=== PATIENT | male | born 1980 | race Native Hawaiian/Other Pacific Islander ===

== ENCOUNTER 2019-03-05 22:01 | Emergency (ER) | payer MEDICAID ==
[2019-03-05 22:14] VITALS: BP 132/74
--- NOTE | 2019-03-05 22:50 | ERPHSYRPT ---
- History of Present Illness Time Seen by Provider: 03/05/19 22:03 Source: patient Exam Limitations: no limitations Patient Subjective Stated Complaint: allergic reaction. Patient has a history of similar allergic reactions in the past because of his reactions remain unknown. He's been unable to afford allergy testing or medications. This started approximately 30 minutes prior to arrival after eating fish Triage Nursing Assessment: patient arrived by ambulance with complaint of alleric reaction Timing/Duration: today Quality: burning, itchy Severity: mild Location: generalized Possible Causes: no cause identified Modifying Factors: Improves With: antihistamine Associated Symptoms: denies symptoms Allergies/Adverse Reactions: cefaclor [From Ceclor] Allergy (Verified 03/05/19 22:16) Hives Home Medications: Melatonin 2 03/05/19 [History] Hx Tetanus, Diphtheria Vaccination/Date Given: Yes Hx Influenza Vaccination/Date Given: No Hx Pneumococcal Vaccination/Date Given: No Immunizations Up to Date: Yes - Review of Systems Constitutional: No Fever, No Chills Eyes: No Symptoms Ears, Nose, & Throat: No Symptoms Respiratory: No Cough, No Dyspnea Cardiac: No Chest Pain, No Edema, No Syncope Abdominal/Gastrointestinal: No Abdominal Pain, No Nausea, No Vomiting, No Diarrhea Genitourinary Symptoms: No Dysuria Musculoskeletal: No Back Pain, No Neck Pain Skin: Pruritis, Rash Neurological: No Dizziness, No Focal Weakness, No Sensory Changes Psychological: No Symptoms Endocrine: No Symptoms All Other Systems: Reviewed and Negative - Past Medical History Pertinent Past Medical History: No Neurological History: No Pertinent History ENT History: No Pertinent History Cardiac History: No Pertinent History Respiratory History: COPD Endocrine Medical History: No Pertinent History Musculoskeletal History: No Pertinent History GI Medical History: Other History: No Pertinent History Psycho-Social History: No Pertinent History Male Reproductive Disorders: No Pertinent History Other Medical History: Patient states he has blood in stool at times and was scheduled for exam and then lost his insurance - Past Surgical History Past Surgical History: Yes Neuro Surgical History: No Pertinent History Cardiac: No Pertinent History Respiratory: No Pertinent History Gastrointestinal: No Pertinent History Genitourinary: No Pertinent History Musculoskeletal: No Pertinent History Male Surgical History: No Pertinent History - Social History Smoking Status: Current every day smoker How long have you smoked: 25 years Exposure to second hand smoke: Yes Drug Use: marijuana Patient Lives Alone: Yes - Nursing Vital Signs Nursing Vital Signs: Initial Vital Signs Temperature 98 F 03/05/19 22:03 Pulse Rate 77 03/05/19 22:03 Respiratory Rate 20 03/05/19 22:03 Blood Pressure 132/74 03/05/19 22:03 O2 Sat by Pulse Oximetry 98 03/05/19 22:03 Pain Scale Pain Intensity 0 - Physical Exam General Appearance: no apparent distress, alert Eye Exam: PERRL/EOMI, eyes nml inspection Ears, Nose, Throat Exam: normal ENT inspection, pharynx normal, moist mucous membranes Neck Exam: normal inspection, non-tender, supple, full range of motion Respiratory Exam: normal breath sounds, lungs clear, No respiratory distress Cardiovascular Exam: regular rate/rhythm, normal heart sounds Gastrointestinal/Abdomen Exam: soft, mass, No tenderness Back Exam: normal inspection, normal range of motion, No CVA tenderness, No vertebral tenderness Extremity Exam: normal inspection, normal range of motion Neurologic Exam: alert, oriented x 3, cooperative, normal mood/affect, sensation nml, No motor deficits Skin Exam: normal color, warm, dry, rash Lymphatic Exam: No adenopathy SpO2: 98 Ordered Tests: Medication Summary Discontinued Medications Generic Name Dose Route Start Last Admin Trade Name Freq PRN Reason Stop Dose Admin Diphenhydramine HCl 25 mg 03/05/19 22:56 Benadryl 25 Mg Capsule PO 03/05/19 22:57 STAT ONE Methylprednisolone Sodium Succinate 125 mg 03/05/19 23:00 Solu-Medrol 125 Mg IV 03/05/19 23:01 STAT ONE - Progress Progress: improved - Departure Departure Disposition: Home Clinical Impression: Allergic Condition: Stable Critical Care Time: No Referrals: YAMILET JC [Primary Care Provider] - Prescriptions: Prednisone 10 mg [Deltasone 10 mg] 10 mg PO TID #12 tablet
[2019-03-05] MEDS ORDERED: BENADRYL 25 MG CAPSULE PO ONE (22:56)
[2019-03-05] MEDS ORDERED: solu-MEDROL 125 MG IV ONE (23:00)
[2019-03-05] MEDS ORDERED: solu-MEDROL 125 MG ONE (23:02)
[2019-03-05] MEDS ORDERED: BENADRYL 25 MG CAPSULE ONE (23:02)
[2019-03-05 23:35] VITALS: PULSE 80; O2SAT 97
== END 2019-03-05 23:31 | disposition home or self-care (01) ==
LOC: ED 22:01
DX: T78.40XA Allergy, unspecified, initial encounter (principal)
CPT/HCPCS: 96374; 99284; 99291; 99292; J2930; A9270-GY

== ENCOUNTER 2019-07-28 07:56 | Emergency (ER) | payer SELFPAY ==
[2019-07-28] MEDS ORDERED: Sodium Chloride 0.9% 1000 ML 1,000 ML IV STA (08:07)
--- NOTE | 2019-07-28 08:11 | ERPHSYRPT ---
- History of Present Illness Time Seen by Provider: 07/28/19 07:58 Source: patient, EMS Exam Limitations: no limitations Physician History: 39 years old male with history of unknown allergies leading to anaphylactic reactions in the past presented in the ER via EMS after he had a sudden onset hives all over with swelling of tongue/throat with difficulty breathing almost 20 minutes prior to arrival after he had a lemon cake. Patient could not find his own EpiPen and on EMS arrival he is given EpiPen and improved. He denies any difficulty breathing at present. No scratchiness or soreness in the throat. Hives are gone. Denies any chest tightness or pressure. He is also given Solu-Medrol and 50 mg IV Benadryl as well by EMS. Patient is currently feeling back to normal. Timing/Duration: today, resolved prior to arrival, improved Severity: severe Modifying Factors: Improves With: other Associated Symptoms: rash, No nausea, No vomiting, No abdominal pain, No shortness of breath Allergies/Adverse Reactions: cefaclor [From [facility]] Allergy (Verified 03/05/19 22:16) Hives Home Medications: Melatonin 2 03/05/19 [History] Hx Tetanus, Diphtheria Vaccination/Date Given: Yes Hx Influenza Vaccination/Date Given: No Hx Pneumococcal Vaccination/Date Given: No Travel Risk - International Travel Have you traveled outside of the country in past 3 weeks: No Have you or anyone close to you been diagnosed with or: No Do your reside in a community with a known COVID-19 case?: No - Coronavirus Screening Has patient experienced Coronavirus symptoms: No - Review of Systems Constitutional: No Symptoms Eyes: No Symptoms Ears, Nose, & Throat: Throat Pain, Throat Swelling, Hoarse Respiratory: Dyspnea, Wheezing Cardiac: No Symptoms Abdominal/Gastrointestinal: No Symptoms Genitourinary Symptoms: No Symptoms Musculoskeletal: No Symptoms Skin: Pruritis, Rash Neurological: No Symptoms Psychological: No Symptoms Endocrine: No Symptoms Hematologic/Lymphatic: No Symptoms Immunological/Allergic: No Symptoms - Past Medical History Neurological History: No Pertinent History ENT History: No Pertinent History Cardiac History: No Pertinent History Respiratory History: COPD Endocrine Medical History: No Pertinent History Musculoskeletal History: No Pertinent History GI Medical History: Other History: No Pertinent History Psycho-Social History: No Pertinent History Male Reproductive Disorders: No Pertinent History Other Medical History: Patient states he has blood in stool at times and was scheduled for exam and then lost his insurance - Past Surgical History Past Surgical History: Yes Neuro Surgical History: No Pertinent History Cardiac: No Pertinent History Respiratory: No Pertinent History Gastrointestinal: No Pertinent History Genitourinary: No Pertinent History Musculoskeletal: No Pertinent History Male Surgical History: No Pertinent History - Social History Smoking Status: Current every day smoker How long have you smoked: 25 years Exposure to second hand smoke: Yes Drug Use: marijuana Patient Lives Alone: Yes - Nursing Vital Signs Nursing Vital Signs: Initial Vital Signs Temperature 98.3 F 07/28/19 07:58 Pulse Rate 77 07/28/19 07:58 Respiratory Rate 18 07/28/19 07:58 Blood Pressure 140/84 07/28/19 07:58 O2 Sat by Pulse Oximetry 97 07/28/19 07:58 Pain Scale Pain Intensity 0 - Physical Exam General Appearance: no apparent distress Eye Exam: PERRL/EOMI, eyes nml inspection Ears, Nose, Throat Exam: normal ENT inspection, TMs normal, pharyngeal erythema Neck Exam: normal inspection, non-tender, supple, full range of motion Respiratory Exam: normal breath sounds, lungs clear Cardiovascular Exam: regular rate/rhythm, normal heart sounds Gastrointestinal/Abdomen Exam: soft, normal bowel sounds, No tenderness Back Exam: normal inspection Extremity Exam: normal inspection, normal range of motion Neurologic Exam: alert, oriented x 3, cooperative, nuclear chemistry technician II-XII nml as tested Skin Exam: normal color SpO2 Interpretation: normal O2 Delivery: Room Air - Course Nursing assessment & vital signs reviewed: Yes Ordered Tests: Medication Summary Discontinued Medications Generic Name Dose Route Start Last Admin Trade Name Freq PRN Reason Stop Dose Admin Famotidine 40 mg 07/28/19 10:00 07/28/19 08:14 Pepcid 20 Mg Vial IV 08/27/19 09:59 40 mg DAILY PRITESH Administration Famotidine Confirm 07/28/19 08:14 Pepcid 20 Mg Vial Administered 07/28/19 08:15 Dose 40 mg IV .STK-MED ONE Sodium Chloride 1,000 mls @ 999 mls/hr 07/28/19 08:07 07/28/19 09:20 Sodium Chloride 0.9% 1000 Ml IV 07/28/19 09:07 Infused .Q1H1M STA Infusion Sodium Chloride Confirm 07/28/19 08:14 Sodium Chloride 0.9% 1000 Ml Administered 07/28/19 08:15 Dose 1,000 mls @ ud .ROUTE .STK-MED ONE - Progress Progress: improved, re-examined Progress Note: 07/28/19 10:30 39 years old is evaluated for anaphylactic reaction. Patient already have received IM epinephrine shot and Solu-Medrol/Benadryl. Patient has not wheezing , not in any distress on presentation. I have given him Pepcid and a fluid bolus. Patient remained stable. I have observed him almost 2-1/2 hours with no rebound. Patient is recommended to follow-up with his primary care and need allergy testing to find out triggering allergen so he can avoid it. I would give him a prescription of EpiPen and will continue steroids/Benadryl and Pepcid for the next few days. Discussed signs/symptoms of worsening needing return to ER with patient in detail which he seems understanding. Stable for discharge. Counseled pt/family regarding: diagnosis, need for follow-up - Departure Departure Disposition: Home Clinical Impression: Allergic reaction Qualifiers: Encounter type: initial encounter Qualified Code(s): T78.40XA - Allergy, unspecified, initial encounter Condition: Stable Critical Care Time: No Referrals: YAMILET JC [Primary Care Provider] - Follow Up with PCP (1 to 2 days) Instructions: Food Allergy, Anaphylaxis (DC) Additional Instructions: Follow-up with your primary care physician for reevaluation. Use EpiPen as needed. Return to ER for any worsening. Avoid any possible known allergen. Prescriptions: Diphenhydramine HCl 25 mg [Benadryl 25 mg Capsule] 25 mg PO Q4H PRN PRN # 20 capsule PRN Reason: Allergies Albuterol 8 gm Mdi Hfa [Ventolin Hfa MDI] 8 gm IH Q4H #1 hfa.aer.[id number] EPINEPHrine [Epipen 0.3 MG] 0.3 mg IJ DIRECTIONS UNKNOWN PRN #1 ml PRN Reason: Allergies Famotidine 20 mg [Pepcid 20 MG] 20 mg PO BID #10 tablet Prednisone 50 mg PO DAILY #5 tablet
[2019-07-28] MEDS ORDERED: Pepcid 20 MG VIAL IV ONE (08:14)
[2019-07-28] MEDS ORDERED: Sodium Chloride 0.9% 1000 ML 1,000 ML ONE (08:14)
[2019-07-28] MEDS ORDERED: Pepcid 20 MG VIAL IV SCH (10:00)
[2019-07-28 10:54] VITALS: BP 126/72; PULSE 81; O2SAT 95
== END 2019-07-28 11:12 | disposition home or self-care (01) ==
LOC: ED 07:56
DX: T78.40XA Allergy, unspecified, initial encounter (principal)
CPT/HCPCS: 82962; 96360; 96374; 99284

== ENCOUNTER 2019-09-15 11:43 | Emergency (ER) | payer SELFPAY ==
[2019-09-15] MEDS ORDERED: TORAdol 30 mg Injection IM ONE (12:05)
[2019-09-15] MEDS ORDERED: TORAdol 30 mg Injection ONE (12:06)
--- NOTE | 2019-09-15 12:26 | ERPHSYRPT ---
- History of Present Illness Time Seen by Provider: 09/15/19 11:50 Source: patient Exam Limitations: no limitations Patient Subjective Stated Complaint: "I twisted my knee getting off a horse." Triage Nursing Assessment: Pt presented alert et oriented x2 answering questions appropriately. Pt reported stepping off a horse when he twisted his right knee. Pt reported past injury to the same knee. Knee noted to have moderate swelling superior and medial to the joint. Decreased ROM noted. Decreased joint strength noted. Pedal pulses noted equal bilateral. Symmetrical chest expansion. Pt denies numbness/paresthesias. Physician History: Patient is a 39-year-old male presents to our ED with right knee pain. Patient states he was getting off a horse when he twisted his knee. Patient has a history of injury to the right knee. Patient states he hyperextended his knee several years ago. Patient has had mild residual discomfort and pain due to this previous injury. Patient twisted his knee yesterday while getting off of a horse. Pain described as an ache that is well localized. Pain primarily on the superior medial aspect of his left knee. Pain worse with movement and palpation. Pain improved with rest. No other symptoms. No other injuries. Method of Injury: twisted Occurred: yesterday Quality: constant Severity of Pain-Max: moderate Severity of Pain-Current: mild Lower Extremities Pain: knee: right Modifying Factors: Improves With: movement, rest Associated Symptoms: none, No dizzy, No fainted, No snapping sensation Allergies/Adverse Reactions: cefaclor [From Ceclor] Allergy (Verified 03/05/19 22:16) Hives Home Medications: Melatonin 2 03/05/19 [History] Hx Tetanus, Diphtheria Vaccination/Date Given: Yes Hx Influenza Vaccination/Date Given: No Hx Pneumococcal Vaccination/Date Given: No Immunizations Up to Date: No Travel Risk - International Travel Have you traveled outside of the country in past 3 weeks: No Have you or anyone close to you been diagnosed with or: No Do your reside in a community with a known COVID-19 case?: Yes If Yes where:: [facility] - Coronavirus Screening Has patient experienced Coronavirus symptoms: No - Review of Systems Constitutional: No Symptoms, No Fever, No Chills Eyes: No Symptoms Ears, Nose, & Throat: No Symptoms Respiratory: No Symptoms, No Cough, No Dyspnea Cardiac: No Symptoms, No Chest Pain, No Edema, No Syncope Abdominal/Gastrointestinal: No Symptoms, No Abdominal Pain, No Nausea, No Vomiting, No Diarrhea Genitourinary Symptoms: No Symptoms, No Dysuria Musculoskeletal: No Symptoms, No Back Pain, No Neck Pain Skin: No Symptoms, No Rash Neurological: No Symptoms, No Dizziness, No Focal Weakness, No Sensory Changes Psychological: No Symptoms Endocrine: No Symptoms Immunological/Allergic: No Symptoms All Other Systems: Reviewed and Negative - Past Medical History Pertinent Past Medical History: No Neurological History: No Pertinent History ENT History: No Pertinent History Cardiac History: No Pertinent History Respiratory History: COPD Endocrine Medical History: No Pertinent History Musculoskeletal History: No Pertinent History GI Medical History: Other History: No Pertinent History Psycho-Social History: No Pertinent History Male Reproductive Disorders: No Pertinent History Other Medical History: Patient states he has blood in stool at times and was scheduled for exam and then lost his insurance - Past Surgical History Past Surgical History: Yes Neuro Surgical History: No Pertinent History Cardiac: No Pertinent History Respiratory: No Pertinent History Gastrointestinal: No Pertinent History Genitourinary: No Pertinent History Musculoskeletal: No Pertinent History Male Surgical History: No Pertinent History - Social History Smoking Status: Current every day smoker How long have you smoked: 25 years Exposure to second hand smoke: Yes Drug Use: marijuana Patient Lives Alone: Yes - Nursing Vital Signs Nursing Vital Signs: Initial Vital Signs Temperature 98.2 F 09/15/19 11:44 Pulse Rate 90 09/15/19 11:44 Respiratory Rate 18 09/15/19 11:44 Blood Pressure 143/94 09/15/19 11:44 O2 Sat by Pulse Oximetry 100 09/15/19 11:44 Pain Scale Pain Intensity 10 - Physical Exam General Appearance: no apparent distress, alert Eyes, Ears, Nose, Throat Exam: moist mucous membranes Neck Exam: normal inspection, non-tender, supple Cardiovascular/Respiratory Exam: chest non-tender, normal breath sounds, regular rate/rhythm, no respiratory distress Gastrointestinal/Abdominal Exam: non-tender, guarding Back Exam: normal inspection, No vertebral tenderness Hips Exam: bilateral: non-tender, normal inspection, normal range of motion, no evidence of injury Legs Exam: bilateral leg: non-tender, normal inspection, normal range of motion , no evidence of injury Knees Exam: right knee: bone tenderness, pain, swelling, left knee: non-tender, normal inspection, normal range of motion, no evidence of injury Ankle Exam: bilateral ankle: non-tender, normal inspection, normal range of motion, no evidence of injury Foot Exam: bilateral foot: non-tender, normal inspection, normal range of motion , no evidence of injury DTR - Lower Extremities Exam: knee (R): 2+, knee (L): 2+ Neuro/Tendon Exam: normal sensation, normal motor functions, No tendon function deficit (Right lower extremities neurovascular intact distally. PT DP pulse palpable. Compartments are soft. Cap refill less than 2 seconds.) Mental Status Exam: alert, oriented x 3, cooperative Skin Exam: normal color, warm, dry SpO2 Interpretation: normal SpO2: 100 O2 Delivery: Room Air - Course Nursing assessment & vital signs reviewed: Yes - Radiology Exams Knee X-ray Interpretation: Teleradiologist Report (Large right knee effusion with a tiny distal femur shaft bony exostosis) Ordered Tests: Active Orders 24 hr Category Date Time Status Cold Application STAT Care 09/15/19 11:50 Active Nursing [Miscellaneous Nursing Order] ROUTINE Care 09/15/19 12:04 Active KNEE (1 OR 2 VIEW) Stat Exams 09/15/19 12:03 Completed Medication Summary Discontinued Medications Generic Name Dose Route Start Last Admin Trade Name Freq PRN Reason Stop Dose Admin Ketorolac Tromethamine 60 mg 09/15/19 12:05 09/15/19 12:07 Toradol 30 Mg Injection IM 09/15/19 12:06 60 mg STAT ONE Administration Ketorolac Tromethamine Confirm 09/15/19 12:06 Toradol 30 Mg Injection Administered 09/15/19 12:07 Dose 60 mg .ROUTE .[place]-MED ONE - Progress Progress: improved Progress Note: 09/15/19 12:42 Patient reassessed. Pain improved. X-ray negative for fracture dislocation. However there is a large knee effusion that may be due to a torn ACL. Patient given bilateral axillary crutches and a knee immobilizer. Patient referred to the orthopedic clinic for further evaluation and treatment. Pain prescription transmitted to patient's pharmacy. Patient voices no other complaints at this time. Patient states is ready for discharge. 09/15/19 12:43 Patient neurovascular intact distally post knee immobilizer application. Counseled pt/family regarding: diagnosis, need for follow-up, rad results - Departure Departure Disposition: Home, Extended Care Facility Clinical Impression: Knee effusion, right, Bony exostosis, Knee sprain Condition: Stable Critical Care Time: No Referrals: YAMILET JC [Primary Care Provider] - Additional Instructions: Discharge/Care Plan WALTER CHAN was seen on 09/15/19 in the Emergency Room. The patient was counseled regarding Diagnosis,Lab results, Imaging studies, need for follow up and when to return to the Emergency Room. Prescriptions given: Discharge Note I have spoken with the patient and/or caregivers. I have explained the patient' s condition, diagnosis and treatment plan based on the information available to me at this time. I have answered the patient's and/or caregiver's questions and addressed any concerns. The patient and/or caregivers have as good understanding of the patient's diagnosis, condition and treatment plan as can be expected at this point. The vital signs have been stable. The patient's condition is stable and appropriate for discharge from the emergency department. The patient will pursue further outpatient evaluation with the primary care physician or other designated or consulting physician as outlined in the discharge instructions. The patient and/or caregivers are agreeable to this plan of care and follow-up instructions have been explained in detail. The patient and/or caregivers have received these instruction. The patient/and or caregivers are aware that any significant change in condition or worsening of symptoms should prompt an immediate return to this or the closest emergency department or call 911. Prescriptions: Ketorolac Tromethamine [Toradol] 10 mg PO TID 3 Days #15 tablet Outpatient Orders: Ortho Referral Time Frame: 1 Day, Location: ORTHO CLINIC
--- NOTE | 2019-09-15 12:27 | XRAY ---
Indication: Pain following injury. Comparison: None 2 view right knee demonstrates large nonspecific effusion and tiny distal femur shaft bony exostosis. No other bony, articular, or soft tissue abnormalities.
[2019-09-15 12:42] VITALS: BP 144/90; PULSE 82
[2019-09-15 12:44] VITALS: O2SAT 100
== END 2019-09-15 12:49 | disposition home or self-care (01) ==
LOC: ED 11:43
DX: M25.461 Effusion, right knee (principal); X50.1XXA Overexertion from prolonged static or awkward postures, initial encounter; Y93.52 Activity, horseback riding; Y92.9 Unspecified place or not applicable; Y99.9 Unspecified external cause status; M25.561 Pain in right knee; J44.9 Chronic obstructive pulmonary disease, unspecified; Z72.0 Tobacco use; F12.90 Cannabis use, unspecified, uncomplicated; M89.9 Disorder of bone, unspecified; S83.91XA Sprain of unspecified site of right knee, initial encounter
CPT/HCPCS: 73560; 96372; 99284; J1885; L1830

== ENCOUNTER 2020-02-08 17:29 | Inpatient (IN) | payer OTHER ==
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
[2020-02-08] MEDS ORDERED: Unasyn 3GM / NaCl 100ML 3 GM/100 ML IVPB IV STA (18:32)
[2020-02-08 18:34] LABS: Absolute Neutrophil Ct (ANC) 5.59 (1.4-6.9); BASOPHIL % 0.4 % (0.0-0.4); Basophil (Absolute #) 0.03 (0-0.4); Eosinophil % 5.1 % (0.00-5.0); Eosinophil (Absolute #) 0.42 (0-0.5); Hematocrit 37.6 % (42-50); Hemoglobin 11.8 gm/dl (12.5-18.0); Lymphocyte (Absolute #) 1.37 (1.0-4.6); Lymphocytes % 16.5 % (24.0-44.0); Mean Cell Volume 91.3 fl (78-100); Mean Corpuscular Hemoglobin 28.6 pg (26-32); Mean Corpuscular Hgb Concent. 31.4 g/dl (32-36); Monocyte (Absolute #) 0.87 (0.0-1.3); Monocytes % 10.5 % (0.0-12.0); Neutrophil % 67.5 % (36.0-66.0); Platelet Count 442 K/mm3 (150-450); Red Blood Count 4.12 M/mm3 (4.1-5.6); Red Cell Distribution Width 15.3 % (11.5-14.0); White Blood Count 8.3 K/mm3 (4.0-10.5)
[2020-02-08 18:46] LABS: ALKALINE PHOSPHATASE 162 U/L (38-126); ANION GAP 8.1 MEQ/L (5-15); BLOOD UREA NITROGEN 15 mg/dL (9-20); CHLORIDE 97 mmol/L (98-107); Calcium 9.1 mg/dL (8.4-10.2); Carbon Dioxide 32 mmol/L (22-30); Creatinine 1 0.59 mg/dL (0.66-1.25); EST GLOMERULAR FILTRATION RATE > 60.0 ML/MIN; Glucose 97 mg/dL (74-106); Potassium 3.6 mmol/L (3.5-5.1); SGOT/AST 32 U/L (17-59); SGPT/ALT 25 U/L (0-50); SODIUM 133 mmol/L (137-145); Total Protein 7.3 g/dL (6.3-8.2)
[2020-02-08] MEDS ORDERED: Unasyn 3GM / NaCl 100ML 3 GM/100 ML IVPB ONE (18:50)
[2020-02-08] MEDS ORDERED: Zofran 4 MG/2 ML VIAL IV PRN (19:38)
[2020-02-08] MEDS: Neurontin 100 MG PO SCH (22:40)
[2020-02-08] MEDS: OXYCODONE-ACETAMINOPHEN 10-325 PO SCH (22:41)
[2020-02-08] MEDS: Colace 100 MG PO SCH (22:41)
[2020-02-08] MEDS: Senokot-S Tablet PO SCH (22:41)
[2020-02-08] MEDS: Cyclobenzaprine 10 MG PO SCH (22:41)
[2020-02-08] MEDS: LACTULOSE 20 GM/30ML UD CUP PO SCH (22:45)
[2020-02-08] MEDS: Dulcolax 10 MG SUPP PR SCH (22:45)
[2020-02-08] MEDS ORDERED: Unasyn 3 GM Vial ONE (23:28)
[2020-02-08] MEDS ORDERED: Sodium Chloride 100ML MINI-BAG PLUS 100 ML IV ONE (23:28)
[2020-02-08] MEDS: REMERON 30 MG PO SCH (23:39)
[2020-02-08] MEDS: Unasyn 3GM / NaCl 100ML 3 GM/100 ML IVPB IV SCH (23:40)
[2020-02-09] MEDS ORDERED: Sodium Chloride 100ML MINI-BAG PLUS 100 ML IV ONE (05:19)
[2020-02-09] MEDS ORDERED: Unasyn 3 GM Vial ONE (05:19)
[2020-02-09] MEDS: OXYCODONE-ACETAMINOPHEN 10-325 PO SCH ×4 (05:56→23:32)
[2020-02-09] MEDS: Cyclobenzaprine 10 MG PO SCH ×3 (05:56→21:37)
[2020-02-09] MEDS: ENOXAPARIN SODIUM SQ SCH (05:56)
[2020-02-09] MEDS: Unasyn 3GM / NaCl 100ML 3 GM/100 ML IVPB IV SCH ×4 (05:57→23:33)
[2020-02-09] MEDS: FEOSOL 325 MG PO SCH (09:02)
[2020-02-09] MEDS: Neurontin 100 MG PO SCH ×3 (09:02→21:37)
[2020-02-09] MEDS: Miralax Powder 17GM PACKET PO SCH (09:03)
[2020-02-09] MEDS: Senokot-S Tablet PO SCH ×4 (09:03→23:10)
[2020-02-09] MEDS: Colace 100 MG PO SCH ×2 (09:03→21:38)
[2020-02-09] MEDS: LACTULOSE 20 GM/30ML UD CUP PO SCH ×2 (09:04→21:57)
[2020-02-09] MEDS ORDERED: GAVILAX PO SCH (10:00)
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
[2020-02-09 19:01] LABS: Amourphous Crystal FEW /HPF (NEGATIVE); Appearance CLEAR (CLEAR); Bilirubin NEGATIVE (NEGATIVE); Blood NEGATIVE Ery/ul (0-5); Epithelial Cells RARE /HPF (FEW); Glucose NEGATIVE (NEGATIVE); Ketones NEGATIVE (NEGATIVE); Leukocyte Esterase NEGATIVE (NEGATIVE); Mucus SLIGHT /HPF (NEGATIVE); Nitrite NEGATIVE (NEGATIVE); Protein,Urine Dip NEGATIVE (Negative); Specific Gravity 1.026 (1.005-1.025); Urobilinogen NEGATIVE mg/dL (0-1); WBC 0-2 /HPF (0-5)
[2020-02-09 19:03] LABS: Bacteria NONE SEEN /HPF (NEGATIVE)
[2020-02-09] MEDS: TYLENOL 325 MG PO PRN (20:28)
[2020-02-09] MEDS: REMERON 30 MG PO SCH (21:37)
[2020-02-09] MEDS: Dulcolax 10 MG SUPP PR SCH (21:57)
[2020-02-09] MEDS: Sodium Chloride 0.9% 1000 ML 1,000 ML IV SCH (22:24)
[2020-02-10] MEDS: TYLENOL 325 MG PO PRN ×2 (04:50→23:28)
[2020-02-10 05:14] LABS: Absolute Neutrophil Ct (ANC) 3.36 (1.4-6.9); BASOPHIL % 0.5 % (0.0-0.4); Basophil (Absolute #) 0.03 (0-0.4); Eosinophil % 8.7 % (0.00-5.0); Eosinophil (Absolute #) 0.51 (0-0.5); Hematocrit 34.4 % (42-50); Hemoglobin 10.5 gm/dl (12.5-18.0); Lymphocyte (Absolute #) 1.32 (1.0-4.6); Lymphocytes % 22.5 % (24.0-44.0); Mean Cell Volume 93.2 fl (78-100); Mean Corpuscular Hemoglobin 28.5 pg (26-32); Mean Corpuscular Hgb Concent. 30.5 g/dl (32-36); Monocyte (Absolute #) 0.65 (0.0-1.3); Monocytes % 11.1 % (0.0-12.0); Neutrophil % 57.2 % (36.0-66.0); Platelet Count 468 K/mm3 (150-450); Red Blood Count 3.69 M/mm3 (4.1-5.6); Red Cell Distribution Width 14.9 % (11.5-14.0); White Blood Count 5.9 K/mm3 (4.0-10.5)
[2020-02-10 05:43] LABS: ANION GAP 10.1 MEQ/L (5-15); BLOOD UREA NITROGEN 17 mg/dL (9-20); CHLORIDE 103 mmol/L (98-107); Calcium 8.9 mg/dL (8.4-10.2); Carbon Dioxide 28 mmol/L (22-30); Creatinine 1 0.61 mg/dL (0.66-1.25); EST GLOMERULAR FILTRATION RATE > 60.0 ML/MIN; Glucose 141 mg/dL (74-106); Potassium 4.5 mmol/L (3.5-5.1); SODIUM 136 mmol/L (137-145)
[2020-02-10] MEDS: OXYCODONE-ACETAMINOPHEN 10-325 PO SCH (06:31)
[2020-02-10] MEDS: Cyclobenzaprine 10 MG PO SCH ×3 (06:31→21:38)
[2020-02-10] MEDS: ENOXAPARIN SODIUM SQ SCH (06:34)
[2020-02-10] MEDS: Unasyn 3GM / NaCl 100ML 3 GM/100 ML IVPB IV SCH ×4 (06:50→23:37)
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
--- NOTE | 2020-02-10 08:39 | PCM.NOTE ---
Date and Time: 02/10/20 0838 Subjective Assessment: patient reports his back pain is not well controlled and feels he needs another med between doses, currently receiving percocet q6 hrs. no other complaints at present Objective Exam General Appearance: no apparent distress Neurologic Exam: alert, oriented x 3 Wound Assessment: Skin/Wound Assessment Wound/Incision Assessment Start: 02/08/20 20:30 Text: Status: Active Freq: Q6H Protocol: Document 02/10/20 02:00 LB (Rec: 02/10/20 02:12 LB [id number]) Wound/Incision Assessment Posterior Medial Back Wound Assessment Shift Assessment Wound Type Incision Wound Stage Non Pressure Wound Drainage Amount None Drainage Odor None/Absent General Appearance Well Approximated Surrounding Tissue [place] Comment 3 open areas on spine along old incision site, has appt with surgeon in approx 2 weeks Posterior Coccyx Wound Assessment Shift Assessment Wound Type DECUBITUS Wound Stage Stage II Drainage Amount None Drainage Odor None/Absent General Appearance Open to air,Clean/Dry,Reddened Length (cm) (cm) 4 Width (cm) (cm) 3 Surrounding Tissue Bright Red,Blanched/Dull Primary Dressing BARRIER CREAM Secondary Dressing open to air Wound Photo Photo Taken Yes Respiratory Exam: normal breath sounds, lungs clear, No respiratory distress Cardiovascular Exam: regular rate/rhythm, normal heart sounds Gastrointestinal/Abdomen Exam: soft, No tenderness, No mass Rectal Exam: other (gluteal cleft with 6cm area of erythema with sloughing, no abscess present. scant drainage) OBJECTIVE DATA Vital Signs: Vital Signs - 24 hr Temp Pulse Resp BP Pulse Ox 02/10/20 07:11 97.9 F 87 16 118/67 96 02/10/20 04:00 98.3 F 90 19 108/56 98 02/09/20 23:49 98.2 F 92 H 18 115/60 98 02/09/20 20:00 97.7 F 102 H 19 123/64 99 02/09/20 16:00 98.1 F 92 H 20 116/62 98 02/09/20 12:00 98.2 F 110 H 20 110/56 98 Pain Assessment - Last Documented Pain Intensity 8 Pain Scale Used 0-10 Pain Scale Intake and Output: Intake & Output 02/07/20 02/08/20 02/09/20 02/10/20 11:59 11:59 11:59 11:59 Intake Total 2017 1638 Output Total 700 2600 Balance 1318 -961 Weight 65.2 kg 65.4 kg Lab Results: Lab Results-Last 24 Hours 02/09/20 02/09/20 02/10/20 Range/Units 15:00 Unknown 04:30 WBC 5.9 (4.0-10.5) K/mm3 RBC 3.69 L (4.1-5.6) M/mm3 Hgb 10.5 L (12.5-18.0) gm/dl Hct 34.4 L (42-50) % MCV 93.2 (78-100) fl MCH 28.5 (26-32) pg MCHC 30.5 L (32-36) g/dl RDW 14.9 H (11.5-14.0) % Plt Count 468 H (150-450) K/mm3 MPV 9.0 (7.5-11.0) fl Gran % 57.2 (36.0-66.0) % Eos # (Auto) 0.51 H (0-0.5) Absolute Lymphs (auto) 1.32 (1.0-4.6) Absolute Monos (auto) 0.65 (0.0-1.3) Lymphocytes % 22.5 L (24.0-44.0) % Monocytes % 11.1 (0.0-12.0) % Eosinophils % 8.7 H (0.00-5.0) % Basophils % 0.5 (0.0-0.4) % Absolute Granulocytes 3.36 (1.4-6.9) Basophils # 0.03 (0-0.4) Sodium (137-145) mmol/L Potassium (3.5-5.1) mmol/L Chloride (98-107) mmol/L Carbon Dioxide (22-30) mmol/L Anion Gap (5-15) MEQ/L BUN (9-20) mg/dL Creatinine (0.66-1.25) mg/dL Estimated GFR ML/MIN Glucose (74-106) mg/dL Hemoglobin A1c 4.88 (4.5-6.0) % Calcium (8.4-10.2) mg/dL Urine Color YELLOW (YELLOW) Urine Appearance CLEAR (CLEAR) Urine pH 6.0 (5-6) Ur Specific [place] 1.026 (1.005-1.025) Urine Protein NEGATIVE (Negative) Urine Ketones NEGATIVE (NEGATIVE) Urine Blood NEGATIVE (0-5) [place]/ul Urine Nitrite NEGATIVE (NEGATIVE) Urine Bilirubin NEGATIVE (NEGATIVE) Urine Urobilinogen NEGATIVE (0-1) mg/dL Ur Leukocyte Esterase NEGATIVE (NEGATIVE) Urine WBC (Auto) 0-2 (0-5) /HPF Urine RBC (Auto) NONE (0-2) /HPF U Epithel Cells (Auto) RARE (FEW) /HPF Urine Bacteria (Auto) NONE SEEN (NEGATIVE) /HPF Amorphous Crystals FEW (NEGATIVE) /HPF Urine Mucus (Auto) SLIGHT (NEGATIVE) /HPF Urine Culture Reflexed NO (NO) Urine Glucose NEGATIVE (NEGATIVE) mg/dL 02/10/20 Range/Units 04:30 WBC (4.0-10.5) K/mm3 RBC (4.1-5.6) M/mm3 Hgb (12.5-18.0) gm/dl Hct (42-50) % MCV (78-100) fl MCH (26-32) pg MCHC (32-36) g/dl RDW (11.5-14.0) % Plt Count (150-450) K/mm3 MPV (7.5-11.0) fl Gran % (36.0-66.0) % Eos # (Auto) (0-0.5) Absolute Lymphs (auto) (1.0-4.6) Absolute Monos (auto) (0.0-1.3) Lymphocytes % (24.0-44.0) % Monocytes % (0.0-12.0) % Eosinophils % (0.00-5.0) % Basophils % (0.0-0.4) % Absolute Granulocytes (1.4-6.9) Basophils # (0-0.4) Sodium 136 L (137-145) mmol/L Potassium 4.5 D (3.5-5.1) mmol/L Chloride 103 (98-107) mmol/L Carbon Dioxide 28 (22-30) mmol/L Anion Gap 10.1 (5-15) MEQ/L BUN 17 (9-20) mg/dL Creatinine 0.61 L (0.66-1.25) mg/dL Estimated GFR > 60.0 ML/MIN Glucose 141 H (74-106) mg/dL Hemoglobin A1c (4.5-6.0) % Calcium 8.9 (8.4-10.2) mg/dL Urine Color (YELLOW) Urine Appearance (CLEAR) Urine pH (5-6) Ur Specific [place] (1.005-1.025) Urine Protein (Negative) Urine Ketones (NEGATIVE) Urine Blood (0-5) [place]/ul Urine Nitrite (NEGATIVE) Urine Bilirubin (NEGATIVE) Urine Urobilinogen (0-1) mg/dL Ur Leukocyte Esterase (NEGATIVE) Urine WBC (Auto) (0-5) /HPF Urine RBC (Auto) (0-2) /HPF U Epithel Cells (Auto) (FEW) /HPF Urine Bacteria (Auto) (NEGATIVE) /HPF Amorphous Crystals (NEGATIVE) /HPF Urine Mucus (Auto) (NEGATIVE) /HPF Urine Culture Reflexed (NO) Urine Glucose (NEGATIVE) mg/dL Multi-Disciplinary Progress Notes: Multi-Disciplinary Progress Notes 02/09/20 08:50 Case Management Note by Renetta Medellin WILL WAIT TO SEE WHAT PHYSICAL THERAPY AND SURGERY CONSULT PLAN FOR WOUND CARE- THEN WILL S/W PATIENT ABOUT NEEDS AT [place] (HOME WITH C OR WOUND CARE OR REHAB STAY) Initialized on 02/09/20 08:50 - END OF NOTE Assessment/Plan (1) Decubitus ulcer of sacral region Current Visit: Yes Status: Acute Qualifiers: Pressure injury stage: unspecified pressure injury stage Qualified Code(s): L89.159 - Pressure ulcer of sacral region, unspecified stage Assessment & Plan: wound culture with e coli, sens to unasyn so will continue. wound care cont, no plan for surgical intervention at this time Code(s): L89.159 - PRESSURE ULCER OF SACRAL REGION, UNSPECIFIED STAGE (2) Back pain Current Visit: Yes Status: Acute Assessment & Plan: increase percocet to q4 hrs then Dr Luu can address further tomorrow Code(s): M54.9 - DORSALGIA, UNSPECIFIED (3) Paraplegia Current Visit: Yes Status: Chronic Code(s): G82.20 - PARAPLEGIA, UNSPECIFIED
[2020-02-10] MEDS: Neurontin 100 MG PO SCH ×3 (10:13→21:39)
[2020-02-10] MEDS: Colace 100 MG PO SCH ×2 (10:13→22:10)
[2020-02-10] MEDS: FEOSOL 325 MG PO SCH (10:13)
[2020-02-10] MEDS: Miralax Powder 17GM PACKET PO SCH (10:13)
[2020-02-10] MEDS: LACTULOSE 20 GM/30ML UD CUP PO SCH ×2 (10:13→22:10)
[2020-02-10] MEDS: Senokot-S Tablet PO SCH ×4 (10:13→22:10)
[2020-02-10] MEDS: OXYCODONE-ACETAMINOPHEN 10-325 PO PRN ×4 (11:04→23:42)
[2020-02-10] MEDS: REMERON 30 MG PO SCH (21:39)
[2020-02-10] MEDS: Dulcolax 10 MG SUPP PR SCH (22:10)
[2020-02-11] MEDS: OXYCODONE-ACETAMINOPHEN 10-325 PO PRN ×5 (03:45→20:23)
[2020-02-11 05:18] LABS: Absolute Neutrophil Ct (ANC) 2.61 (1.4-6.9); BASOPHIL % 0.6 % (0.0-0.4); Basophil (Absolute #) 0.03 (0-0.4); Eosinophil (Absolute #) 0.59 (0-0.5); Hematocrit 35.7 % (42-50); Lymphocyte (Absolute #) 1.58 (1.0-4.6); Lymphocytes % 29.4 % (24.0-44.0); Mean Cell Volume 91.8 fl (78-100); Mean Corpuscular Hemoglobin 28.3 pg (26-32); Mean Corpuscular Hgb Concent. 30.8 g/dl (32-36); Monocyte (Absolute #) 0.57 (0.0-1.3); Monocytes % 10.6 % (0.0-12.0); Neutrophil % 48.4 % (36.0-66.0); Platelet Count 522 K/mm3 (150-450); Red Blood Count 3.89 M/mm3 (4.1-5.6); Red Cell Distribution Width 14.5 % (11.5-14.0); White Blood Count 5.4 K/mm3 (4.0-10.5)
[2020-02-11 05:48] LABS: ANION GAP 10.4 MEQ/L (5-15); BLOOD UREA NITROGEN 12 mg/dL (9-20); CHLORIDE 102 mmol/L (98-107); Calcium 9.2 mg/dL (8.4-10.2); Carbon Dioxide 27 mmol/L (22-30); Creatinine 1 0.54 mg/dL (0.66-1.25); EST GLOMERULAR FILTRATION RATE > 60.0 ML/MIN; Glucose 116 mg/dL (74-106); Potassium 4.4 mmol/L (3.5-5.1); SODIUM 135 mmol/L (137-145)
[2020-02-11] MEDS: ENOXAPARIN SODIUM SQ SCH (06:03)
[2020-02-11] MEDS: Unasyn 3GM / NaCl 100ML 3 GM/100 ML IVPB IV SCH (06:03)
[2020-02-11] MEDS: TYLENOL 325 MG PO PRN (06:09)
[2020-02-11] MEDS: Cyclobenzaprine 10 MG PO SCH ×3 (07:30→22:17)
[2020-02-11] MEDS: Sodium Chloride 0.9% 1000 ML 1,000 ML IV SCH (08:31)
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
[2020-02-11] MEDS: Neurontin 100 MG PO SCH ×3 (09:22→22:16)
[2020-02-11] MEDS: FEOSOL 325 MG PO SCH (09:22)
[2020-02-11] MEDS: Miralax Powder 17GM PACKET PO SCH (09:25)
[2020-02-11] MEDS: Colace 100 MG PO SCH ×2 (09:25→22:17)
[2020-02-11] MEDS: LACTULOSE 20 GM/30ML UD CUP PO SCH ×2 (09:25→22:27)
[2020-02-11] MEDS: Senokot-S Tablet PO SCH ×4 (09:26→22:27)
[2020-02-11] MEDS: Zosyn 3.375 GM Vial 3.375 GM in Sodium Chloride 100ML MINI-BAG PLUS 100 ML IV SCH ×2 (12:18→17:52)
[2020-02-11] MEDS: REMERON 30 MG PO SCH (22:17)
[2020-02-11] MEDS: Dulcolax 10 MG SUPP PR SCH (22:27)
[2020-02-12] MEDS: OXYCODONE-ACETAMINOPHEN 10-325 PO PRN ×6 (00:27→23:09)
[2020-02-12] MEDS: Zosyn 3.375 GM Vial 3.375 GM in Sodium Chloride 100ML MINI-BAG PLUS 100 ML IV SCH ×2 (01:13→05:38)
[2020-02-12] MEDS: Cyclobenzaprine 10 MG PO SCH ×3 (05:37→21:23)
[2020-02-12] MEDS: ENOXAPARIN SODIUM SQ SCH (06:09)
[2020-02-12] MEDS: Neurontin 100 MG PO SCH (08:02)
[2020-02-12] MEDS: Colace 100 MG PO SCH ×2 (08:03→21:22)
[2020-02-12] MEDS: FEOSOL 325 MG PO SCH (08:03)
[2020-02-12] MEDS: LACTULOSE 20 GM/30ML UD CUP PO SCH ×2 (08:20→21:23)
[2020-02-12] MEDS: Miralax Powder 17GM PACKET PO SCH (08:20)
[2020-02-12] MEDS: Senokot-S Tablet PO SCH ×3 (08:20→21:25)
--- NOTE | 2020-02-12 09:00 | XRAY ---
Indication: half-way placement. Comparison: None Portable chest hyperinflated with minimal bibasilar subsegmental atelectasis/scarring and tiny right mid lung calcified granuloma. No focal infiltrate, consolidation, or large effusion. Heart is not enlarged. Bony thorax intact with bilateral T4-T11 posterior pedicle screws/hooks/Vela rods. Impression: Nonacute chest with chronic features.
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
[2020-02-12] MEDS: Levofloxacin 500 MG Tablet PO SCH (09:44)
[2020-02-12] MEDS: NEURONTIN 300 MG PO SCH ×3 (09:44→21:24)
[2020-02-12] MEDS: Dulcolax 10 MG SUPP PR SCH (21:24)
[2020-02-12] MEDS: REMERON 30 MG PO SCH (21:25)
[2020-02-13] MEDS: OXYCODONE-ACETAMINOPHEN 10-325 PO PRN ×5 (03:13→20:45)
[2020-02-13] MEDS: Cyclobenzaprine 10 MG PO SCH ×3 (05:53→21:47)
[2020-02-13] MEDS: ENOXAPARIN SODIUM SQ SCH (05:53)
[2020-02-13] MEDS: Levofloxacin 500 MG Tablet PO SCH (08:21)
[2020-02-13] MEDS: NEURONTIN 300 MG PO SCH ×3 (08:21→21:48)
[2020-02-13] MEDS: FEOSOL 325 MG PO SCH (08:21)
[2020-02-13] MEDS: Colace 100 MG PO SCH ×2 (08:22→21:47)
[2020-02-13] MEDS: Miralax Powder 17GM PACKET PO SCH (08:24)
[2020-02-13] MEDS: LACTULOSE 20 GM/30ML UD CUP PO SCH ×2 (08:24→21:47)
[2020-02-13] MEDS: Senokot-S Tablet PO SCH ×2 (08:25→21:48)
[2020-02-13] MEDS: Zosyn 3.375 GM Vial 3.375 GM in Sodium Chloride 100ML MINI-BAG PLUS 100 ML IV SCH (08:36)
--- NOTE | 2020-02-13 11:32 | PCM.NOTE ---
Date and Time: 02/13/20 1111 Subjective Assessment: 39 yr old male seen and examined this am . Patient reports he is doing well. He is ready to go. He denies much pain. - Review of Systems Constitutional: No Fever Musculoskeletal: Other (contractures) Skin: Decubiti Neurological: Paralysis Objective Exam General Appearance: no apparent distress Neurologic Exam: alert, oriented x 3, cooperative, motor deficits, depressed mood/affect, No nml station & gait, No slurred speech Skin Exam: normal color, warm, dry, other (sacral decubitus ulcer that appears to be healing) Wound Assessment: Skin/Wound Assessment Wound/Incision Assessment Start: 02/08/20 20:30 Text: Status: Active Freq: Q6H Protocol: Document 02/13/20 02:00 SG (Rec: 02/13/20 02:55 SG [id number]) Wound/Incision Assessment Posterior Medial Back Wound Assessment Shift Assessment Wound Type Incision Wound Stage Non Pressure Wound Drainage Amount Minimal Drainage Description Yellow Drainage Odor None/Absent Surrounding Tissue [place] Comment open to air. Posterior Coccyx Wound Assessment Shift Assessment Wound Type DECUBITUS Wound Stage Stage II Drainage Amount None Drainage Odor None/Absent General Appearance Open to air,Clean/Dry Surrounding Tissue [place],Bright Red Primary Dressing BARRIER CREAM Comment barrier cream applied. Wound Photo Photo Taken No Ears, Nose, Throat Exam: moist mucous membranes Respiratory Exam: normal breath sounds, lungs clear, No respiratory distress Cardiovascular Exam: regular rate/rhythm, normal heart sounds Gastrointestinal/Abdomen Exam: soft, normal bowel sounds, No tenderness, No distention Extremity Exam: other (contractures), No pedal edema OBJECTIVE DATA Vital Signs: Vital Signs - 24 hr Temp Pulse Resp BP Pulse Ox 02/13/20 07:34 98.3 F 98 H 17 101/59 99 02/13/20 04:00 98.4 F 108 H 17 121/67 98 02/12/20 23:39 98.3 F 90 17 122/59 98 02/12/20 19:28 97.9 F 92 H 18 123/62 98 02/12/20 16:00 97.9 F 128 H 18 106/63 98 Pain Assessment - Last Documented Pain Intensity 8 Pain Scale Used 0-10 Pain Scale Intake and Output: Intake & Output 02/10/20 02/11/20 02/12/20 02/13/20 11:59 11:59 11:59 11:59 Intake Total 2899 3646 1320 3260 Output Total 3550 2475 4025 2425 Balance -651 1171 -8353 835 Weight 65.4 kg 66.2 kg 66.3 kg 69.3 kg Radiology Exams: Radiology Procedures Category Date Time Status CHEST 1 VIEW (PORTABLE) Urgent Exams 02/12/20 08:11 Completed Multi-Disciplinary Progress Notes: Multi-Disciplinary Progress Notes 02/12/20 14:22 Nutrition Note by Kelsy Mathews F/u Note: Note pt diet adv'd to house regular 02/08 with 75-100% po intake x most meals. no new wt. Labs 02/10: Na 135, Cr 0.54, alb wnl, glu 116, hgb 11, hct 35.7. Pt with increased protein needs r/t wound healing a/e/b open sacral pressure ulcers stage II. Sending Prostat 64 30 ml tid with meals. Goal #1) maintain po intake 75%. Will monitor and f/u prn. L.NICKI Mathews Initialized on 02/12/20 14:22 - END OF NOTE 02/12/20 11:19 Physical Therapy Note by Ileana Barbosa TO ASSIST NSG W/ SKIN MONITORING. SACRAL DECUBITUS APPEARANCE IS UNCHANGED. STILL PRESENTS W/ YELLOWIS-WHITE NUCLEUS BUT LESS REDNESS IN PERIWOUND. NO DRAINAGE NOTED. NSG ASSISTED W/ MOVE TO AIR FLOW BED TO HELP W/ PRESSURE RELIEF. PT'S W/C AND CUSHION WERE DELIVERED LAST NIGHT BUT DO NOT FEEL FOAM CUSHION THAT HE HAS PROVIDES SUFFICIENT PRESSURE RELIEF. NO SKILLED INTERVENTION WARRANTED AT THIS TIME, BUT WILL ASSIST W/ MONITORING SKIN DURING STAY. ILEANA BARBOSA PT Initialized on 02/12/20 11:19 - END OF NOTE Assessment/Plan (1) Decubitus ulcer of sacral region Current Visit: Yes Status: Acute Qualifiers: Pressure injury stage: unspecified pressure injury stage Qualified Code(s): L89.159 - Pressure ulcer of sacral region, unspecified stage Assessment & Plan: Patient is waiting for transfer [facility]. Will continue with current therapy of antibiotics and wound care. Code(s): L89.159 - PRESSURE ULCER OF SACRAL REGION, UNSPECIFIED STAGE (2) Paraplegia Current Visit: Yes Status: Chronic Assessment & Plan: Patient will likely need pt and ot at care facility Code(s): G82.20 - PARAPLEGIA, UNSPECIFIED
[2020-02-13] MEDS ORDERED: Mylicon 80MG PO PRN (21:05)
[2020-02-13] MEDS: Dulcolax 10 MG SUPP PR SCH (21:47)
[2020-02-13] MEDS: REMERON 30 MG PO SCH (21:48)
[2020-02-14] MEDS: OXYCODONE-ACETAMINOPHEN 10-325 PO PRN ×5 (01:07→19:41)
[2020-02-14] MEDS: ENOXAPARIN SODIUM SQ SCH (06:21)
[2020-02-14] MEDS: Cyclobenzaprine 10 MG PO SCH ×3 (06:21→21:15)
[2020-02-14] MEDS: Levofloxacin 500 MG Tablet PO SCH (10:20)
[2020-02-14] MEDS: Colace 100 MG PO SCH ×2 (10:20→21:14)
[2020-02-14] MEDS: FEOSOL 325 MG PO SCH (10:20)
[2020-02-14] MEDS: NEURONTIN 300 MG PO SCH ×3 (10:20→21:15)
[2020-02-14] MEDS: LACTULOSE 20 GM/30ML UD CUP PO SCH ×2 (11:05→21:55)
[2020-02-14] MEDS: Miralax Powder 17GM PACKET PO SCH (11:06)
[2020-02-14] MEDS: Senokot-S Tablet PO SCH ×2 (11:06→21:55)
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
[2020-02-14] MEDS: MOTRIN 600 MG PO PRN (17:56)
[2020-02-14] MEDS: REMERON 30 MG PO SCH (21:15)
[2020-02-14] MEDS: Dulcolax 10 MG SUPP PR SCH (21:55)
[2020-02-15] MEDS: OXYCODONE-ACETAMINOPHEN 10-325 PO PRN ×6 (00:18→20:54)
[2020-02-15] MEDS: ENOXAPARIN SODIUM SQ SCH (06:43)
[2020-02-15] MEDS: Cyclobenzaprine 10 MG PO SCH ×3 (06:43→20:55)
[2020-02-15] MEDS: Colace 100 MG PO SCH ×2 (08:37→20:55)
[2020-02-15] MEDS: NEURONTIN 300 MG PO SCH ×3 (08:39→20:55)
[2020-02-15] MEDS: Levofloxacin 500 MG Tablet PO SCH (08:39)
[2020-02-15] MEDS: FEOSOL 325 MG PO SCH (08:39)
[2020-02-15] MEDS ORDERED: DESYREL 50 MG PO PRN (08:49)
[2020-02-15] MEDS: Miralax Powder 17GM PACKET PO SCH (11:19)
[2020-02-15] MEDS: LACTULOSE 20 GM/30ML UD CUP PO SCH ×3 (11:19→20:56)
[2020-02-15] MEDS: Senokot-S Tablet PO SCH ×2 (11:20→20:55)
[2020-02-15] MEDS: MOTRIN 600 MG PO PRN (15:29)
--- NOTE | 2020-02-15 16:44 | PCM.NOTE ---
Date and Time: 02/15/20 1642 Subjective Assessment: Pt having some primary insomnia. Judah po well. - Review of Systems Constitutional: No Fever Objective Exam General Appearance: no apparent distress, alert Neurologic Exam: oriented x 3, cooperative Skin Exam: other (at superior gluteal cleft, discreet white area is decreased in size, with decreased erythema surrounding. no fluctuance or exudate.) Wound Assessment: Skin/Wound Assessment Wound/Incision Assessment Start: 02/08/20 20:30 Text: Status: Active Freq: Q6H Protocol: Document 02/15/20 14:00 AR (Rec: 02/15/20 14:56 AR [id number]) Wound/Incision Assessment Posterior Medial Back Wound Assessment Shift Assessment Wound Type Incision Wound Stage Non Pressure Wound Drainage Amount Minimal Drainage Description Yellow Surrounding Tissue [place] Posterior Coccyx Wound Assessment Shift Assessment Wound Type DECUBITUS Wound Stage Stage II General Appearance Open to air Wound Bed Greatest Portion Yellow (Slough) Wound Bed Lesser Portion Red (Granulation) % Granulated (Red) 75 % [place] (Yellow) 25 % Eschar (Black) 0 Surrounding Tissue [place],Bright Red Primary Dressing BARRIER CREAM Comment barrier cream applied Wound Photo Photo Taken No Comment: photos previously taken Eye Exam: eyes nml inspection Ears, Nose, Throat Exam: TMs normal, moist mucous membranes Neck Exam: normal inspection Respiratory Exam: normal breath sounds, lungs clear, No crackles/rales, No rhonchi, No wheezing Cardiovascular Exam: regular rate/rhythm, normal heart sounds, No murmur Extremity Exam: normal inspection Back Exam: normal inspection, No rash OBJECTIVE DATA Vital Signs: Vital Signs - 24 hr Temp Pulse Resp BP Pulse Ox 02/15/20 12:00 97.6 F 98 H 18 120/60 98 02/15/20 07:26 96.9 F 93 H 17 92/53 98 02/15/20 04:15 98.2 F 87 16 101/57 99 02/14/20 23:46 98.3 F 103 H 18 119/62 100 02/14/20 20:00 98.1 F 122 H 20 135/61 100 Pain Assessment - Last Documented Pain Intensity 8 Pain Scale Used [facility] Intake and Output: Intake & Output 02/13/20 02/14/20 02/15/20 02/16/20 11:59 11:59 11:59 11:59 Intake Total 3260 960 1800 Output Total 2425 2200 2275 Balance 297 -7426 -326 Weight 69.3 kg 66.8 kg Multi-Disciplinary Progress Notes: Multi-Disciplinary Progress Notes 02/15/20 09:45 Case Management Note by Renetta Medellin S/W [facility]OB[facility] AT [facility]- STILL WAITING ON PRECERT AT THIS TIME Initialized on 02/15/20 09:45 - END OF NOTE Assessment/Plan (1) Decubitus ulcer of sacral region Current Visit: Yes Status: Acute Qualifiers: Pressure injury stage: unspecified pressure injury stage Qualified Code(s): L89.159 - Pressure ulcer of sacral region, unspecified stage Assessment & Plan: Actually looking much better. Will need wound care at rehab center. Code(s): L89.159 - PRESSURE ULCER OF SACRAL REGION, UNSPECIFIED STAGE (2) Paraplegia Current Visit: Yes Status: Chronic Assessment & Plan: Discharge to rehab center when insurance approves. Code(s): G82.20 - PARAPLEGIA, UNSPECIFIED (3) Wound dehiscence Current Visit: Yes Status: Resolved Code(s): T81.30XA - DISRUPTION OF WOUND, UNSPECIFIED, INITIAL ENCOUNTER (4) Hx of diabetes mellitus Current Visit: Yes Status: Resolved Code(s): Z86.39 - PERSONAL HISTORY OF ENDO, NUTRITIONAL AND METABOLIC DISEASE
[2020-02-15] MEDS: REMERON 30 MG PO SCH (20:55)
[2020-02-15] MEDS: Dulcolax 10 MG SUPP PR SCH (20:59)
[2020-02-16] MEDS: OXYCODONE-ACETAMINOPHEN 10-325 PO PRN ×4 (02:24→15:33)
[2020-02-16] MEDS: Miralax Powder 17GM PACKET PO SCH (06:26)
[2020-02-16] MEDS: ENOXAPARIN SODIUM SQ SCH (06:26)
[2020-02-16] MEDS: Colace 100 MG PO SCH (08:44)
[2020-02-16] MEDS: NEURONTIN 300 MG PO SCH ×2 (08:45→15:33)
[2020-02-16] MEDS: FEOSOL 325 MG PO SCH (08:45)
[2020-02-16] MEDS: Levofloxacin 500 MG Tablet PO SCH (08:45)
[2020-02-16] MEDS: Senokot-S Tablet PO SCH (08:45)
[2020-02-16] MEDS: LACTULOSE 20 GM/30ML UD CUP PO SCH (10:27)
[2020-02-16] MEDS: Cyclobenzaprine 10 MG PO SCH ×3 (10:31→15:34)
[2020-02-16 11:52] VITALS: BP 105/59; PULSE 89; O2SAT 96
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
== END 2020-02-16 16:03 | DRG 593 ==
LOC: ED 17:29 → MED SURG 19:31 → OBSVTOIN 19:31
PROVIDERS: ADMIT Family Medicine; ATTEND Family Medicine
DX: L89.152 Pressure ulcer of sacral region, stage 2 (principal); G82.20 Paraplegia, unspecified; T81.30XA Disruption of wound, unspecified, initial encounter; Z79.899 Other long term (current) drug therapy; Z86.39 Personal history of other endocrine, nutritional and metabolic disease; M54.9 Dorsalgia, unspecified; M54.2 Cervicalgia; F51.01 Primary insomnia
CPT/HCPCS: 36000; 36415; 71045; 80048; 80053; 81001; 83036; 84134; 85025; 87040; 87070; 87077; 87086; 87186; 96365; 99283; J0295; J1650; A9270-GY